=== PATIENT | female | born 1995 | race American Indian/Alaskan Native ===

== ENCOUNTER 2018-01-19 14:50 | Emergency (ER) | payer MEDICAID ==
[2018-01-19 20:54] VITALS: BP 142/91
[2018-01-19] MEDS ORDERED: XYLOCAINE 2% INFILTRATI ONE (21:14)
[2018-01-19] MEDS ORDERED: BOOSTRIX IM ONE (21:17)
--- NOTE | 2018-01-19 21:44 | Emergency Department Report ---
ED Laceration HPI - HPI Chief Complaint: Wound/Laceration Stated Complaint: RT THUMB LACERATION Time Seen by Provider: 01/19/18 21:08 Occurred When: Yesterday Severity: mild Tetanus Status: Not up to Date Laceration Symptoms: Yes Pain, No Foreign Body Sensation, No Numbness, No Weakness Other History: 22-year-old female presents with complaint of laceration to top of right thumb. Patient was washing dishes and accidentally lacerated the top of her right thumb MCP joint with a knife in the sink. Patient denies any current bleeding. It occurred at 1 AM last night. Does not know last tetanus up-to-date. No other injury sustained. Patient is visibly flexing and extending somewhat without difficulty. ED Review of Systems ROS: Stated complaint: RT THUMB LACERATION Other details as noted in HPI Constitutional: denies: chills, fever Eyes: denies: eye pain, eye discharge, vision change ENT: denies: ear pain, throat pain Respiratory: denies: cough, shortness of breath, wheezing Cardiovascular: denies: chest pain, palpitations Endocrine: no symptoms reported Gastrointestinal: denies: abdominal pain, nausea, diarrhea Genitourinary: denies: urgency, dysuria, discharge Musculoskeletal: denies: back pain, joint swelling, arthralgia Skin: denies: rash, lesions Neurological: denies: headache, weakness, paresthesias Psychiatric: denies: anxiety, depression Hematological/Lymphatic: denies: easy bleeding, easy bruising ED Past Medical Hx - Past Medical History Previous Medical History?: No - Surgical History Past Surgical History?: Yes Additional Surgical History: x1 - Social History Smoking Status: Never Smoker Substance Use Type: None - Medications Home Medications: Home Medications Medication Instructions Recorded Confirmed Last Taken Type Cephalexin [Keflex] 500 mg PO Q12HR #10 cap 01/19/18 Unknown Rx Ibuprofen [Motrin] 800 mg PO Q8HR PRN #20 tablet 01/19/18 Unknown Rx Laceration Physical Exam - Exam General: Vital signs noted. No distress. Alert and acting appropriately. Wound Length (cm): 2 Laceration Location: Upper Extremity (right thumb MCP joint) Laceration Exam: Yes Normal Distal CMS (distal sensation and capillary refill less than 1 second), No Foreign Body, No Exposed Tendon, Vessel, or Nerve, No Tendon Injury (thumb flexion and extension at MCP joints clinically intact) ED Course Vital Signs 01/19/18 01/19/18 15:50 20:53 Temperature 99.0 F 98.4 F Pulse Rate 109 H 84 Respiratory 18 16 Rate Blood Pressure 133/77 Blood Pressure 142/91 [Left] O2 Sat by Pulse 99 100 Oximetry - Laceration /Wound Repair Right Distal Finger Wound Location: upper extremity (right distal thumb) Wound Length (cm): 2 Wound's Depth, Shape: linear Irrigated w/ Saline (ccs): 100 Betadine Prep?: Yes Anesthesia: 1% Lidocaine Volume Anesthetic (ccs): 3 Wound Debrided: minimal Wound Repaired With: sutures Suture Size/Type: 4:0, nylon Number of Sutures: 3 Progress: Area infiltrated with lidocaine. Good local anesthesia achieved. 3 sutures placed after irrigation of wound. Good closure achieved. Procedure tolerated well. Covered with gauze afterwards afterward. ED Medical Decision Making - Medical Decision Making A/P: Right thumb laceration 1-sutures to be removed in 7-10 days. Neurovascular exam right thumb and range of motion clinically intact 2-tetanus updated 3-Motrin when necessary, triple antibiotic ointment 4- pt advised to return to the ED for any fevers chills pus drainage erythema at site of laceration Critical care attestation.: If time is entered above; I have spent that time in minutes in the direct care of this critically ill patient, excluding procedure time. ED Disposition Clinical Impression: Laceration of right thumb Qualifiers: Encounter type: initial encounter Damage to nail status: without damage Foreign body presence: without foreign body Qualified Code(s): S61.011A - Laceration without foreign body of right thumb without damage to nail, initial encounter Disposition: - TO HOME OR SELFCARE Is pt being admited?: No Does the pt Need Aspirin: No Condition: Stable Instructions: Finger Laceration (ED), Suture Care (ED) Additional Instructions: Please return to the ED or to another clinical provider for removal of sutures in 7-10 days Prescriptions: Cephalexin [Keflex] 500 mg PO Q12HR #10 cap Ibuprofen [Motrin] 800 mg PO Q8HR PRN #20 tablet PRN Reason: Pain Referrals: [facility] [Provider Group] - 3-5 Days Forms: Work/School Release Form(ED) Time of Disposition: 21:46
== END 2018-01-19 21:50 | disposition home or self-care (01) ==
LOC: ED 14:50
DX: S61.011A Laceration without foreign body of right thumb without damage to nail, initial encounter (principal); W26.8XXA Contact with other sharp object(s), not elsewhere classified, initial encounter; Y93.89 Activity, other specified; Y92.89 Other specified places as the place of occurrence of the external cause; Y99.8 Other external cause status
CPT/HCPCS: 90471; 90715